=== PATIENT | male | born 1950 | race Caucasian/White ===

== ENCOUNTER 2017-01-23 09:05 | Day surgery (SDC) | payer MEDICARE ==
[~2017-01-23 09:05] MED LIST: ABACAVIR300 M1; ACTOPLUS MET 151 TA PO; ACTOPLUS MET 151 TAB PO; ACTOS15 MG PO; ADULT ASPIRIN81 MG PO; ADULT LOW DOSE81 M1 PO; ALBUTEROL2.5 MG/0.1 AERO NEB; ALDACTONE25 MG PO; ALDACTONE50 M1 PO; AMOXICILLIN PO; ASPIRIN81 MG PO; AURYXIA 210 MG PO; AURYXIA PO; BACTRIM DS1 TAB PO; BYSTOLIC10 M1 PO; BYSTOLIC10 MG PO; BYSTOLIC20 M1 PO; BYSTOLIC5 MG PO; CIPRO250 MG PO; CLAVULANATE PO; COZAAR25 M1 PO; CRESTOR10 MG PO; DAILY VITAMIN1 EACH PO; DEMADEX PO; DEMADEX20 M1 PO; DEMADEX20 MG PO; EXFORGE 10-3201 TAB PO; EXFORGE 5-160 M1 TAB PO; FERRIC CITRATE210 MG PO; GLIPIZIDE ER10 M1 PO; GLIPIZIDE10 M2 PO; GLIPIZIDE10 MG PO; GLIPIZIDE5 MG PO; GLUCOPHAGE1000 MG PO; GLUCOTROL5 MG PO; HUMALOG100 UNITS/ SC; HYDRALAZINE HCL25 M1 PO; HYDRALAZINE HCL50 M1 PO; HYDROCODONE/APA1 CAP PO; IBUPROFEN200 M2 PO; IRON325 ( 65 PO; ISOSORBIDE MONO10 M1 PO; ISOSORBIDE MONO60 M3 PO; K-DUR20 MEQ PO; K-TAB ER20 ME1 PO; KIONEX15 GM/601 PO; LANTUS100 U/ML SC; LANTUS100 UNITS/ SC; LASIX40 MG PO; LEVAQUIN250 M3 PO; LEVAQUIN500 M1 PO; MEDROL4 M1 PO; METOLAZONE2.5 M1 PO; MUCINEX600 MG PO; MULTIVITAMIN W1 EAC1 PO; NITROGLYCERIN0.4 M2 SL; NORCO; NORCO 5/325 TAB1 TAB PO; NORVASC2.5 M1 PO; NORVASC5 MG PO; NOVOLOG FL100 UNIT/2 SC; NOVOLOG100 UNIT/2; OMNICEF300 MG PO; OXYGEN AT; PLAVIX75 M1 PO; POTASSIUM CHLO10 ME2 PO; PRAVACHOL40 M1 PO; PRAVASTATIN SOD40 M1 PO; PRAVASTATIN SOD40 MG PO; PREDNISONE20 M1 PO; PROAIR HFA8.5 GM IH; PROTONIX40 MG PO; RANEXA500 M1 PO; RENVELA800 M1 PO; SENOKOT-S TABLE1 TAB PO; SENSIPAR60 M1 PO; SENSIPAR90 M1 PO; SPIRIVA18 MC1 IH; SPIRIVA18 MC1 INH; SPIRIVA18 MCG IH; SULFAMYLON453.6 GM TP; SYMBICORT 160-1 PUFF INH; SYMBICORT 160-4.6 GM IH; TYLENOL325 M2 PO; VANCO 500500 MG/100 IV; VANCOMYCIN1 GM/VIA2 IV; VENTOLIN HFA18 G2 INH; ZOFRAN4 MG PO; [UNRECOGNIZED DRUG - OTHER] PO
[2017-02-28] MEDS ORDERED: FERRIC CITRATE210 MG PO (13:02)
[2017-02-28] MEDS ORDERED: PRILOSEC OTC20 M1 PO (13:04)
[2017-02-28] MEDS ORDERED: TYLENOL EXTRA500 M1 PO (13:05)
[2017-02-28] MEDS ORDERED: SPIRIVA18 MC1 INH (13:05)
[2017-02-28] MEDS ORDERED: SYMBICORT 160-1 PUFF INH (13:05)
[2017-02-28] MEDS ORDERED: PRAVASTATIN SOD40 M1 PO (13:09)
[2017-02-28] MEDS ORDERED: ALBUTEROL2.5 MG/3 M INH (13:10)
[2017-04-03] MEDS ORDERED: HYDROCODON-ACE1 EA16 PO (10:17)
[2017-04-03] MEDS ORDERED: BYSTOLIC5 M1 PO (10:17)
[2017-04-03] MEDS ORDERED: ISOSORBIDE MONO30 M4 PO (10:18)
[2017-04-03] MEDS ORDERED: LANTUS SOL100 UNIT/1 SC (10:19)
[2017-04-03] MEDS ORDERED: ENULOSE10 GM/151 PO (10:19)
[2017-04-03] MEDS ORDERED: COZAAR25 M1 PO (10:20)
[2017-04-03] MEDS ORDERED: ZOFRAN ODT4 MG PO (10:20)
[2017-04-03] MEDS ORDERED: NOVOLOG100 UNITS/ SC (10:20)
[2017-04-03] MEDS ORDERED: GAVILAX17 G2 PO (10:21)
[2017-04-03] MEDS ORDERED: PRAVASTATIN SOD40 M1 PO (10:22)
[2017-06-01] MEDS ORDERED: BACTRIM DS TAB1 EAC2 PO (03:45)
== END 2017-01-23 13:01 ==
LOC: RADSP 09:05 → SHSB 09:12
PROC: B01B1ZZ Fluoroscopy of Spinal Cord using Low Osmolar Contrast (ICD-10-PCS; principal; 2017-01-23)
DX: M48.02 Spinal stenosis, cervical region (principal); M47.812 Spondylosis without myelopathy or radiculopathy, cervical region; M79.662 Pain in left lower leg; G89.29 Other chronic pain; I25.10 Atherosclerotic heart disease of native coronary artery without angina pectoris; I11.0 Hypertensive heart disease with heart failure; I50.9 Heart failure, unspecified; E11.9 Type 2 diabetes mellitus without complications; E78.5 Hyperlipidemia, unspecified; J45.909 Unspecified asthma, uncomplicated; Z79.4 Long term (current) use of insulin; Z79.899 Other long term (current) drug therapy; Z87.891 Personal history of nicotine dependence; Z95.0 Presence of cardiac pacemaker; Z95.1 Presence of aortocoronary bypass graft; Z95.5 Presence of coronary angioplasty implant and graft; Z98.890 Other specified postprocedural states
CPT/HCPCS: J7030; Q9967

== ENCOUNTER 2017-01-29 14:07 | Inpatient (IN) | payer MEDICARE ==
[2017-01-29] MEDS ORDERED: ULTRAM50 M1 PO (14:23)
[2017-01-29 14:38] LABS: URINE LEUKOCYTE ESTERASE POSITIVE (NEG); URINE PROTEIN MODERATE (NEG)
[2017-01-29 14:40] LABS: URINE APPEARANCE HAZY; URINE BILIRUBIN NEGATIVE (NEG); URINE BLOOD LARGE (NEG); URINE COLOR YELLOW; URINE GLUCOSE (UA) MODERATE (NEG); URINE KETONE NEGATIVE (NEG); URINE NITRITE NEGATIVE (NEG)
[2017-01-29 14:46] LABS: BASO % 0.2 % (0-2); EOS % 1.1 % (0-7); EOSINOPHIL ABSOLUTE COUNT 0.1 tho/cmm (0.0-0.7); HCT-HEMATOCRIT 36.2 % (36.0-53.5); HGB-HEMOGLOBIN 12.3 gm/dl (13.5-17.0); IMMATURE GRANULOCYTES ABSOLUTE 0.05 tho/cmm (0-0.03); IMMATURE GRANULOCYTES PERCENT 0.4 % (0-0.3); LYMPH % 10.3 % (20-45); LYMPH ABSOLUTE COUNT 1.3 tho/cmm (0.8-4.5); MCH (MEAN CORPUSCULAR HGB) 31.6 pg (28.0-32.0); MCV (MEAN CELL VOLUME) 93.1 fl (82.0-96.0); MEAN PLATELET VOLUME 10.1 cmc (9.4-12.4); MONO % 6.5 % (0-12); MONOCYTE ABSOLUTE COUNT 0.8 tho/cmm (0.0-1.2); NEUTROPHIL ABSOLUTE COUNT 10.2 tho/cmm (1.6-8.0); NEUTROPHIL-AUTOMATED 10.2 tho/cmm (1.6-8.0); NEUTROPHILS % 81.5 % (40-80); PLATELET COUNT 156 tho/cmm (150-450); RED BLOOD COUNT 3.89 mil/cmm (4.40-5.70); RED CELL DISTRIBUTION WIDTH 14.6 % (12.4-16.4); WHITE BLOOD COUNT 12.5 tho/cmm (4.0-10.0)
[2017-01-29] MEDS ORDERED: HEMODIALYSIS (14:58)
[2017-01-29 15:00] LABS: URINE WBC 70-80 /[HPF] (0-5)
[2017-01-29 15:01] LABS: URINE BACTERIA 4+; URINE EPITHELIAL CELLS 0-1 /[HPF] (0-10)
[2017-01-29] MEDS ORDERED: ARANESP10 MCG/0.4 IV (15:02)
[2017-01-29] MEDS ORDERED: FERRLECIT62.5 MG/5 IV (15:03)
[2017-01-29] MEDS ORDERED: GENTAMICIN SULF30 G1 TOP (15:04)
[2017-01-29] MEDS ORDERED: HUMULIN R100 UNITS/ SC (15:05)
[2017-01-29] MEDS ORDERED: CATHFLO ACTIVASE2 MG IV (15:06)
[2017-01-29 15:08] LABS: ALB/GLOB RATIO 0.8 (0.8-2.0); ALBUMIN 3.3 g/dl (3.5-5.0); ALKALINE PHOSPHATASE 190 U/L (33-138); ALT/SGPT 22 U/L (12-78); ANION GAP 18 mmol/L (0-20); AST/SGOT 18 U/L (10-40); BILIRUBIN,TOTAL 0.9 mg/dl (0.0-1.5); BLOOD UREA NITROGEN 37 mg/dl (6-24); CALCIUM 8.7 mg/dl (8.5-10.5); CARBON DIOXIDE-VENOUS 22 mmol/L (22-32); CHLORIDE 99 mmol/l (96-110); CREATININE 4.35 mg/dl (0.60-1.30); GLUCOSE 204 mg/dL (70-110); LIPASE 308 U/L (73-393); MAGNESIUM 1.5 mg/dl (1.8-2.6); PHOSPHOROUS 3.7 mg/dl (2.5-4.9); POTASSIUM 4.1 mmol/L (3.7-5.1); SODIUM 135 mmol/L (135-145); eGFR VALUE FOR BLACK 15 mL/Min
[2017-01-29] MEDS ORDERED: ALBUTEROL2.5 MG/0.1 INH (15:14)
[2017-01-29] MEDS ORDERED: COZAAR25 M1 PO (15:17)
[2017-01-29] MEDS ORDERED: RANEXA500 M1 PO (15:18)
[2017-01-29] MEDS ORDERED: SPIRIVA18 MC1 INH (15:18)
[2017-01-29] MEDS ORDERED: SYMBICORT 160-1 PUFF INH (15:19)
[2017-01-29] MEDS ORDERED: KIONEX15 GM/601 PO (15:22)
[2017-01-29] MEDS ORDERED: NITROGLYCERIN0.4 M2 SL (15:23)
[2017-01-29] MEDS ORDERED: NORCO 5-325 TA1 EACH PO (15:23)
[2017-01-29] MEDS ORDERED: VITAMIN D250000 UNI1 PO (15:24)
[2017-01-29 16:24] LABS: PROCALCITONIN 0.44 ng/ml (0.05-0.09)
[2017-01-29 19:44] LABS: INR 1.2 INR (0.9-1.1); PROTHROMBIN TIME 14.4 SECONDS (9.0-13.6)
[2017-01-30 03:22] LABS: BASO % 0.4 % (0-2); EOS % 1.6 % (0-7); EOSINOPHIL ABSOLUTE COUNT 0.2 tho/cmm (0.0-0.7); HCT-HEMATOCRIT 32.2 % (36.0-53.5); HGB-HEMOGLOBIN 10.7 gm/dl (13.5-17.0); IMMATURE GRANULOCYTES ABSOLUTE 0.03 tho/cmm (0-0.03); IMMATURE GRANULOCYTES PERCENT 0.3 % (0-0.3); LYMPH % 12.7 % (20-45); LYMPH ABSOLUTE COUNT 1.4 tho/cmm (0.8-4.5); MCH (MEAN CORPUSCULAR HGB) 30.9 pg (28.0-32.0); MCHC MEAN CORPUSCULAR HGB CONC 33.2 % (32.0-36.0); MCV (MEAN CELL VOLUME) 93.1 fl (82.0-96.0); MEAN PLATELET VOLUME 9.7 cmc (9.4-12.4); MONO % 12.9 % (0-12); MONOCYTE ABSOLUTE COUNT 1.4 tho/cmm (0.0-1.2); NEUTROPHIL ABSOLUTE COUNT 7.7 tho/cmm (1.6-8.0); NEUTROPHIL-AUTOMATED 7.7 tho/cmm (1.6-8.0); NEUTROPHILS % 72.1 % (40-80); PLATELET COUNT 134 tho/cmm (150-450); RED BLOOD COUNT 3.46 mil/cmm (4.40-5.70); RED CELL DISTRIBUTION WIDTH 14.6 % (12.4-16.4); WHITE BLOOD COUNT 10.7 tho/cmm (4.0-10.0)
[2017-01-30 03:38] LABS: ANION GAP 18 mmol/L (0-20); BLOOD UREA NITROGEN 49 mg/dl (6-24); CALCIUM 8.7 mg/dl (8.5-10.5); CARBON DIOXIDE-VENOUS 21 mmol/L (22-32); CHLORIDE 98 mmol/l (96-110); GLUCOSE 262 mg/dL (70-110); SODIUM 133 mmol/L (135-145); eGFR VALUE FOR BLACK 11 mL/Min
[2017-01-30 03:44] LABS: CREATININE 5.56 mg/dl (0.60-1.30)
[2017-01-31 04:56] LABS: BASO % 0.4 % (0-2); EOS % 3.6 % (0-7); EOSINOPHIL ABSOLUTE COUNT 0.4 tho/cmm (0.0-0.7); HCT-HEMATOCRIT 35.4 % (36.0-53.5); HGB-HEMOGLOBIN 11.7 gm/dl (13.5-17.0); IMMATURE GRANULOCYTES ABSOLUTE 0.07 tho/cmm (0-0.03); IMMATURE GRANULOCYTES PERCENT 0.6 % (0-0.3); LYMPH % 13.7 % (20-45); LYMPH ABSOLUTE COUNT 1.5 tho/cmm (0.8-4.5); MCH (MEAN CORPUSCULAR HGB) 30.9 pg (28.0-32.0); MCHC MEAN CORPUSCULAR HGB CONC 33.1 % (32.0-36.0); MCV (MEAN CELL VOLUME) 93.4 fl (82.0-96.0); MONO % 16.2 % (0-12); MONOCYTE ABSOLUTE COUNT 1.8 tho/cmm (0.0-1.2); NEUTROPHIL ABSOLUTE COUNT 7.1 tho/cmm (1.6-8.0); NEUTROPHIL-AUTOMATED 7.1 tho/cmm (1.6-8.0); NEUTROPHILS % 65.5 % (40-80); PLATELET COUNT 137 tho/cmm (150-450); RED BLOOD COUNT 3.79 mil/cmm (4.40-5.70); RED CELL DISTRIBUTION WIDTH 14.7 % (12.4-16.4); WHITE BLOOD COUNT 10.8 tho/cmm (4.0-10.0)
[2017-01-31 05:41] LABS: ANION GAP 21 mmol/L (0-20); BLOOD UREA NITROGEN 64 mg/dl (6-24); CALCIUM 8.3 mg/dl (8.5-10.5); CARBON DIOXIDE-VENOUS 21 mmol/L (22-32); CHLORIDE 95 mmol/l (96-110); CREATININE 6.95 mg/dl (0.60-1.30); GLUCOSE 148 mg/dL (70-110); POTASSIUM 4.7 mmol/L (3.7-5.1); SODIUM 132 mmol/L (135-145); eGFR VALUE FOR BLACK 9 mL/Min
[2017-01-31 05:43] LABS: PHOSPHOROUS 8.3 mg/dl (2.5-4.9)
--- NOTE | 2017-01-31 21:00 | NUR ---
VIRTURAL CARE NOTE: ASSESSMENT DEFERRED. PT. SLEEPING.
--- NOTE | 2017-01-31 21:39 | NUR ---
VIRTUAL CARE NOTE: REVIEWED PLAN OF CARE WITH PT. PT DENIES QUESTIONS RELATED TO MEDICATIONS. STATES PROCEDURES WENT OK TODAY. PLAN FOR NEW DIALYSIS CATH IN A FEW DAYS. PT DENIES FURTHER CONCERNS AT THIS TIME. ENCOURAGED FALL PRECAUTIONS AND TO NOTIFY STAFF FOR ANY NEEDS. PT V/U. WILL CONTINUE WITH CHART REVIEW.
[2017-02-01 06:05] LABS: BASO % 0.3 % (0-2); EOS % 3.6 % (0-7); EOSINOPHIL ABSOLUTE COUNT 0.4 tho/cmm (0.0-0.7); HCT-HEMATOCRIT 36.6 % (36.0-53.5); HGB-HEMOGLOBIN 12.1 gm/dl (13.5-17.0); IMMATURE GRANULOCYTES ABSOLUTE 0.08 tho/cmm (0-0.03); IMMATURE GRANULOCYTES PERCENT 0.7 % (0-0.3); LYMPH % 16.3 % (20-45); LYMPH ABSOLUTE COUNT 1.8 tho/cmm (0.8-4.5); MCH (MEAN CORPUSCULAR HGB) 31.1 pg (28.0-32.0); MCHC MEAN CORPUSCULAR HGB CONC 33.1 % (32.0-36.0); MCV (MEAN CELL VOLUME) 94.1 fl (82.0-96.0); MEAN PLATELET VOLUME 9.8 cmc (9.4-12.4); MONOCYTE ABSOLUTE COUNT 1.2 tho/cmm (0.0-1.2); NEUTROPHIL ABSOLUTE COUNT 7.6 tho/cmm (1.6-8.0); NEUTROPHIL-AUTOMATED 7.6 tho/cmm (1.6-8.0); NEUTROPHILS % 68.1 % (40-80); PLATELET COUNT 139 tho/cmm (150-450); RED BLOOD COUNT 3.89 mil/cmm (4.40-5.70); RED CELL DISTRIBUTION WIDTH 14.7 % (12.4-16.4); WHITE BLOOD COUNT 11.2 tho/cmm (4.0-10.0)
[2017-02-01 06:15] LABS: ALBUMIN 2.9 g/dl (3.5-5.0); ANION GAP 18 mmol/L (0-20); BLOOD UREA NITROGEN 41 mg/dl (6-24); CALCIUM 7.7 mg/dl (8.5-10.5); CARBON DIOXIDE-VENOUS 23 mmol/L (22-32); CHLORIDE 95 mmol/l (96-110); GLUCOSE 97 mg/dL (70-110); POTASSIUM 4.3 mmol/L (3.7-5.1); SODIUM 132 mmol/L (135-145)
[2017-02-01 06:24] LABS: CREATININE 5.19 mg/dl (0.60-1.30); eGFR VALUE FOR BLACK 12 mL/Min
[2017-02-01 14:06] LABS: ALB/GLOB RATIO 0.7 (0.8-2.0); ALBUMIN 2.9 g/dl (3.5-5.0); BILIRUBIN,DIRECT 0.4 mg/dl (0.0-0.3); BILIRUBIN,INDIRECT 0.5 mg/dL (0.0-1.0); BILIRUBIN,TOTAL 0.9 mg/dl (0.0-1.5)
[2017-02-02 07:57] LABS: ALBUMIN 3.1 g/dl (3.5-5.0); BLOOD UREA NITROGEN 61 mg/dl (6-24); CALCIUM 7.3 mg/dl (8.5-10.5); CARBON DIOXIDE-VENOUS 18 mmol/L (22-32); CHLORIDE 95 mmol/l (96-110); GLUCOSE 86 mg/dL (70-110); SODIUM 131 mmol/L (135-145)
[2017-02-02 08:03] LABS: ANION GAP 24 mmol/L (0-20); CREATININE 6.63 mg/dl (0.60-1.30); eGFR VALUE FOR BLACK 9 mL/Min
[2017-02-02 08:04] LABS: PHOSPHOROUS 7.9 mg/dl (2.5-4.9)
[2017-02-02 10:09] LABS: BASO % 0.2 % (0-2); EOS % 0.8 % (0-7); EOSINOPHIL ABSOLUTE COUNT 0.1 tho/cmm (0.0-0.7); HCT-HEMATOCRIT 38.1 % (36.0-53.5); HGB-HEMOGLOBIN 12.7 gm/dl (13.5-17.0); IMMATURE GRANULOCYTES ABSOLUTE 0.17 tho/cmm (0-0.03); IMMATURE GRANULOCYTES PERCENT 1.3 % (0-0.3); LYMPH % 7.8 % (20-45); MCH (MEAN CORPUSCULAR HGB) 31.4 pg (28.0-32.0); MCHC MEAN CORPUSCULAR HGB CONC 33.3 % (32.0-36.0); MCV (MEAN CELL VOLUME) 94.1 fl (82.0-96.0); MEAN PLATELET VOLUME 10.4 cmc (9.4-12.4); MONO % 7.2 % (0-12); NEUTROPHILS % 82.7 % (40-80); PLATELET COUNT 161 tho/cmm (150-450); RED BLOOD COUNT 4.05 mil/cmm (4.40-5.70); RED CELL DISTRIBUTION WIDTH 14.6 % (12.4-16.4); WHITE BLOOD COUNT 13.3 tho/cmm (4.0-10.0)
[2017-02-02 10:18] LABS: INR 1.6 INR (0.9-1.1); PROTHROMBIN TIME 18.9 SECONDS (9.0-13.6)
--- NOTE | 2017-02-02 20:54 | NUR ---
VIRTUAL CARE NOTE: ASSESSMENT DEFERRED. PT. SLEEPING.
[2017-02-03 05:39] LABS: HGB-HEMOGLOBIN 11.8 gm/dl (13.5-17.0); PLATELET COUNT 174 tho/cmm (150-450)
[2017-02-03 05:55] LABS: ALBUMIN 2.9 g/dl (3.5-5.0); BLOOD UREA NITROGEN 45 mg/dl (6-24); CALCIUM 6.8 mg/dl (8.5-10.5); CARBON DIOXIDE-VENOUS 21 mmol/L (22-32); CHLORIDE 97 mmol/l (96-110); CREATININE 5.21 mg/dl (0.60-1.30); SODIUM 135 mmol/L (135-145); eGFR VALUE FOR BLACK 12 mL/Min
[2017-02-03 05:57] LABS: ANION GAP 21 mmol/L (0-20); GLUCOSE 133 mg/dL (70-110); PHOSPHOROUS 5.4 mg/dl (2.5-4.9); POTASSIUM 4.4 mmol/L (3.7-5.1)
--- NOTE | 2017-02-03 18:55 | NUR ---
VIRTUAL CARE NOTE: ASSESSMENT DEFERRED. PT. SLEEPING.
[2017-02-04 05:19] LABS: ALBUMIN 2.9 g/dl (3.5-5.0); BLOOD UREA NITROGEN 67 mg/dl (6-24); CALCIUM 7.3 mg/dl (8.5-10.5); CARBON DIOXIDE-VENOUS 24 mmol/L (22-32); CHLORIDE 95 mmol/l (96-110); GLUCOSE 148 mg/dL (70-110); SODIUM 133 mmol/L (135-145)
[2017-02-04 05:53] LABS: ANION GAP 18 mmol/L (0-20); CREATININE 6.91 mg/dl (0.60-1.30); POTASSIUM 4.4 mmol/L (3.7-5.1); eGFR VALUE FOR BLACK 9 mL/Min
--- NOTE | 2017-02-04 16:44 | NUR ---
VIRTUAL CARE NOTE: PT RESTING ON CHAIR, STATES FEELING OK, HAD DIALYSIS AND VENOGRAM DONE TODAY. PLAN OF CARE REVIEWED, PT DENIES QUESTIONS OR CONCERNS.
[2017-02-05 05:31] LABS: HGB-HEMOGLOBIN 11.8 gm/dl (13.5-17.0); PLATELET COUNT 156 tho/cmm (150-450)
[2017-02-05 05:50] LABS: ANION GAP 18 mmol/L (0-20); BLOOD UREA NITROGEN 43 mg/dl (6-24); CALCIUM 7.3 mg/dl (8.5-10.5); CARBON DIOXIDE-VENOUS 22 mmol/L (22-32); CHLORIDE 97 mmol/l (96-110); CREATININE 5.77 mg/dl (0.60-1.30); GLUCOSE 192 mg/dL (70-110); PHOSPHOROUS 5.3 mg/dl (2.5-4.9); POTASSIUM 4.3 mmol/L (3.7-5.1); SODIUM 133 mmol/L (135-145); eGFR VALUE FOR BLACK 11 mL/Min
[2017-02-06 04:49] LABS: BASO % 0.4 % (0-2); BASO ABSOLUTE COUNT 0.1 tho/cmm (0.0-0.2); EOS % 3.4 % (0-7); EOSINOPHIL ABSOLUTE COUNT 0.4 tho/cmm (0.0-0.7); HGB-HEMOGLOBIN 12.1 gm/dl (13.5-17.0); IMMATURE GRANULOCYTES ABSOLUTE 0.22 tho/cmm (0-0.03); IMMATURE GRANULOCYTES PERCENT 1.8 % (0-0.3); LYMPH % 15.8 % (20-45); LYMPH ABSOLUTE COUNT 1.9 tho/cmm (0.8-4.5); MCH (MEAN CORPUSCULAR HGB) 31.4 pg (28.0-32.0); MCHC MEAN CORPUSCULAR HGB CONC 33.6 % (32.0-36.0); MCV (MEAN CELL VOLUME) 93.5 fl (82.0-96.0); MEAN PLATELET VOLUME 9.5 cmc (9.4-12.4); MONO % 10.9 % (0-12); MONOCYTE ABSOLUTE COUNT 1.3 tho/cmm (0.0-1.2); NEUTROPHIL ABSOLUTE COUNT 8.2 tho/cmm (1.6-8.0); NEUTROPHIL-AUTOMATED 8.2 tho/cmm (1.6-8.0); NEUTROPHILS % 67.7 % (40-80); PLATELET COUNT 151 tho/cmm (150-450); RED BLOOD COUNT 3.85 mil/cmm (4.40-5.70); RED CELL DISTRIBUTION WIDTH 15.4 % (12.4-16.4); WHITE BLOOD COUNT 12.2 tho/cmm (4.0-10.0)
[2017-02-06 07:49] LABS: ALBUMIN 3.1 g/dl (3.5-5.0); ANION GAP 20 mmol/L (0-20); CALCIUM 7.2 mg/dl (8.5-10.5); CARBON DIOXIDE-VENOUS 22 mmol/L (22-32); CHLORIDE 95 mmol/l (96-110); GLUCOSE 120 mg/dL (70-110); POTASSIUM 4.5 mmol/L (3.7-5.1); SODIUM 132 mmol/L (135-145)
[2017-02-06 07:51] LABS: BLOOD UREA NITROGEN 65 mg/dl (6-24); CREATININE 7.74 mg/dl (0.60-1.30); PHOSPHOROUS 7.8 mg/dl (2.5-4.9); eGFR VALUE FOR BLACK 8 mL/Min
[2017-02-06] MEDS ORDERED: CYCLOBENZAPRINE5 M1 PO (09:47)
[2017-02-06] MEDS ORDERED: NORCO 5-325 TA1 EACH PO (09:48)
[2017-02-06] MEDS ORDERED: DULCOLAX10 MG PR (09:49)
[2017-02-06] MEDS ORDERED: MIRALAX17 G2 PO (09:50)
[2017-02-06] MEDS ORDERED: ENULOSE10 GM/151 PO (09:50)
[2017-02-06] MEDS ORDERED: ZOFRAN4 M2 PO (09:51)
[2017-02-06] MEDS ORDERED: VANCOMYCIN HCL500 MG PR (09:52)
--- NOTE | 2017-02-06 21:29 | NUR ---
VIRTUAL CARE NOTE: ASSESSMENT DEFERRED. PT. SLEEPING.
[2017-02-07 05:47] LABS: HGB-HEMOGLOBIN 12.4 gm/dl (13.5-17.0); PLATELET COUNT 174 tho/cmm (150-450)
[2017-02-07] MEDS ORDERED: VANCOMYCIN HCL500 MG IV (14:06)
[2017-02-07] MEDS ORDERED: ENULOSE10 GM/151 PO (14:06)
[2017-02-07] MEDS ORDERED: MIRALAX17 G2 PO (14:24)
[2017-02-07] MEDS ORDERED: DULCOLAX10 MG PR (14:24)
[2017-02-07] MEDS ORDERED: STOP HOME MEDICATION (14:27)
--- NOTE | 2017-02-07 15:12 | NUR ---
VIRTUAL CARE NOTE: PT DRESSED SITTING ON CHAIR READY FOR DISCHARGE INSTRUCTIONS. INFORMATION GIVEN TO PT, PT DENIES QUESTIONS. INFORMED FLOOR NURSE DISCHARGE TEACHING DONE.
[2017-02-28] MEDS ORDERED: FERRIC CITRATE210 MG PO (13:02)
[2017-02-28] MEDS ORDERED: PRILOSEC OTC20 M1 PO (13:04)
[2017-02-28] MEDS ORDERED: SPIRIVA18 MC1 INH (13:05)
[2017-02-28] MEDS ORDERED: SYMBICORT 160-1 PUFF INH (13:05)
[2017-02-28] MEDS ORDERED: TYLENOL EXTRA500 M1 PO (13:05)
[2017-02-28] MEDS ORDERED: PRAVASTATIN SOD40 M1 PO (13:09)
[2017-02-28] MEDS ORDERED: ALBUTEROL2.5 MG/3 M INH (13:10)
[2017-04-03] MEDS ORDERED: HYDROCODON-ACE1 EA16 PO (10:17)
[2017-04-03] MEDS ORDERED: BYSTOLIC5 M1 PO (10:17)
[2017-04-03] MEDS ORDERED: ISOSORBIDE MONO30 M4 PO (10:18)
[2017-04-03] MEDS ORDERED: LANTUS SOL100 UNIT/1 SC (10:19)
[2017-04-03] MEDS ORDERED: ENULOSE10 GM/151 PO (10:19)
[2017-04-03] MEDS ORDERED: ZOFRAN ODT4 MG PO (10:20)
[2017-04-03] MEDS ORDERED: NOVOLOG100 UNITS/ SC (10:20)
[2017-04-03] MEDS ORDERED: COZAAR25 M1 PO (10:20)
[2017-04-03] MEDS ORDERED: GAVILAX17 G2 PO (10:21)
[2017-04-03] MEDS ORDERED: PRAVASTATIN SOD40 M1 PO (10:22)
[2017-06-01] MEDS ORDERED: BACTRIM DS TAB1 EAC2 PO (03:45)
== END 2017-02-07 16:15 | DRG 872 ==
LOC: EDMED 14:07 → EMR2 17:27 → 5WD 17:50
PROVIDERS: Emergency Medicine; Family Medicine; Internal Medicine Nephrology; Radiology Diagnostic Radiology; ADMIT Family Medicine
PROC: 05HD33Z Insertion of Infusion Device into Right Cephalic Vein, Percutaneous Approach (ICD-10-PCS; principal; 2017-02-04)
PROC: B31NYZZ Fluoroscopy of Other Upper Arteries using Other Contrast (ICD-10-PCS; 2017-02-04)
DX: A41.9 Sepsis, unspecified organism (principal); N39.0 Urinary tract infection, site not specified
CPT/HCPCS: C1750; C1751; C1752; C1769; J0885; J1644; J1650; J1815; J1940; J2250; J2270; J2405; J2543; J2550; J3010; J3370; J7040; J7050; Q9967

== ENCOUNTER 2017-03-01 07:59 | Day surgery (SDC) | payer MEDICARE ==
[~2017-03-01 07:59] MED LIST changes: +ALBUTEROL2.5 MG/0.1 INH; +ALBUTEROL2.5 MG/3 M INH; +ARANESP10 MCG/0.4 IV; +CATHFLO ACTIVASE2 MG IV; +CYCLOBENZAPRINE5 M1 PO; +DULCOLAX10 MG PR; +ENULOSE10 GM/151 PO; +FERRLECIT62.5 MG/5 IV; +GENTAMICIN SULF30 G1 TOP; +HEMODIALYSIS; +HUMULIN R100 UNITS/ SC; +MIRALAX17 G2 PO; +NORCO 5-325 TA1 EACH PO; +PRILOSEC OTC20 M1 PO; +STOP HOME MEDICATION; +TYLENOL EXTRA500 M1 PO; +ULTRAM50 M1 PO; +VANCOMYCIN HCL500 MG IV; +VANCOMYCIN HCL500 MG PR; +VITAMIN D250000 UNI1 PO; +ZOFRAN4 M2 PO
[2017-03-01 08:49] LABS: BASO % 0.6 % (0-2); EOSINOPHIL ABSOLUTE COUNT 0.4 tho/cmm (0.0-0.7); HCT-HEMATOCRIT 38.7 % (36.0-53.5); HGB-HEMOGLOBIN 12.1 gm/dl (13.5-17.0); LYMPH ABSOLUTE COUNT 1.2 tho/cmm (0.8-4.5); MCH (MEAN CORPUSCULAR HGB) 30.6 pg (28.0-32.0); MCHC MEAN CORPUSCULAR HGB CONC 31.3 % (32.0-36.0); MCV (MEAN CELL VOLUME) 97.7 fl (82.0-96.0); MEAN PLATELET VOLUME 9.7 cmc (9.4-12.4); MONO % 17.9 % (0-12); MONOCYTE ABSOLUTE COUNT 1.1 tho/cmm (0.0-1.2); NEUTROPHIL ABSOLUTE COUNT 3.6 tho/cmm (1.6-8.0); NEUTROPHIL-AUTOMATED 3.6 tho/cmm (1.6-8.0); NEUTROPHILS % 56.5 % (40-80); PLATELET COUNT 167 tho/cmm (150-450); RED BLOOD COUNT 3.96 mil/cmm (4.40-5.70); RED CELL DISTRIBUTION WIDTH 16.1 % (12.4-16.4); WHITE BLOOD COUNT 6.4 tho/cmm (4.0-10.0)
[2017-03-01 08:57] LABS: INR 1.2 INR (0.9-1.1)
[2017-03-01 09:04] LABS: ANION GAP 15 mmol/L (0-20); BLOOD UREA NITROGEN 42 mg/dl (6-24); CALCIUM 9.7 mg/dl (8.5-10.5); CARBON DIOXIDE-VENOUS 23 mmol/L (22-32); CHLORIDE 102 mmol/l (96-110); GLUCOSE 180 mg/dL (70-110); SODIUM 135 mmol/L (135-145); eGFR VALUE FOR BLACK 11 mL/Min
[2017-04-03] MEDS ORDERED: BYSTOLIC5 M1 PO (10:17)
[2017-04-03] MEDS ORDERED: HYDROCODON-ACE1 EA16 PO (10:17)
[2017-04-03] MEDS ORDERED: ISOSORBIDE MONO30 M4 PO (10:18)
[2017-04-03] MEDS ORDERED: ENULOSE10 GM/151 PO (10:19)
[2017-04-03] MEDS ORDERED: LANTUS SOL100 UNIT/1 SC (10:19)
[2017-04-03] MEDS ORDERED: NOVOLOG100 UNITS/ SC (10:20)
[2017-04-03] MEDS ORDERED: ZOFRAN ODT4 MG PO (10:20)
[2017-04-03] MEDS ORDERED: COZAAR25 M1 PO (10:20)
[2017-04-03] MEDS ORDERED: GAVILAX17 G2 PO (10:21)
[2017-04-03] MEDS ORDERED: PRAVASTATIN SOD40 M1 PO (10:22)
[2017-06-01] MEDS ORDERED: BACTRIM DS TAB1 EAC2 PO (03:45)
== END 2017-03-01 11:45 ==
LOC: SHSB 07:59
PROVIDERS: Radiology Diagnostic Radiology
PROC: 06PY33Z Removal of Infusion Device from Lower Vein, Percutaneous Approach (ICD-10-PCS; principal; 2017-03-01)
PROC: 02H633Z Insertion of Infusion Device into Right Atrium, Percutaneous Approach (ICD-10-PCS; 2017-03-01)
DX: T82.42XA Displacement of vascular dialysis catheter, initial encounter (principal); I12.0 Hypertensive chronic kidney disease with stage 5 chronic kidney disease or end stage renal disease; E11.22 Type 2 diabetes mellitus with diabetic chronic kidney disease; N18.6 End stage renal disease; Z79.4 Long term (current) use of insulin; Z79.899 Other long term (current) drug therapy; Z87.891 Personal history of nicotine dependence; Z95.0 Presence of cardiac pacemaker; Z95.5 Presence of coronary angioplasty implant and graft; Z95.1 Presence of aortocoronary bypass graft; Z98.890 Other specified postprocedural states; Z99.2 Dependence on renal dialysis
CPT/HCPCS: C1750; C1769; J0690; J1644; J2250; J3010; J7030